=== PATIENT | female | born 1935 | race Hispanic/Latino ===

== ENCOUNTER → 2018-06-18 | Outpatient (CLI) | payer OTHER ==
[~2018-06-18] MED LIST: LEVO75 PO; LISI10TA7 PO; OMEG1CAP6 PO; SIMV20TA6 PO
== END | disposition home or self-care (01) ==
LOC: OIH 13:10
PROVIDERS: ATTEND Internal Medicine
DX: I10 Essential (primary) hypertension (principal); M47.815 Spondylosis without myelopathy or radiculopathy, thoracolumbar region
CPT/HCPCS: 71046

== ENCOUNTER → 2018-12-16 | Outpatient (CLI) | payer OTHER ==
[~2018-12-16] MED LIST changes: +ALPR1TAB7 PO; +CEPH500B PO; +CHOL200013 PO; +HYDR-4457 PO; +NAPR-1192 PO; +PANT40TA25 PO; +REFRESH OPTIVE OP
== END | disposition home or self-care (01) ==
LOC: OIH 08:57
PROVIDERS: ATTEND Internal Medicine
DX: Z01.818 Encounter for other preprocedural examination (principal); I10 Essential (primary) hypertension
CPT/HCPCS: 71046

== ENCOUNTER 2018-12-18 08:12 | Day surgery (SDC) | payer OTHER ==
[2018-12-17 14:46] VITALS: BP 176/83
--- NOTE | 2018-12-17 17:28 | NUR ---
ABNORMAL EKG ABNORMAL EKG RESULT REPORTED TO DR. OSBORNE. NO FURTHER ORDERS GIVEN, MAY PROCEED WITH PLANNED PROCEDURE.
[2018-12-18] VITALS (16 sets, daily range): BP systolic 98–138; BP diastolic 47–73
[~2018-12-18] VITALS: Ht 152.4 cm; Wt 87.6 kg
[~2018-12-18 08:12] MED LIST changes: +CEFAZOLIN SODIUM 1 GM VIAL IVP SCH; -CEPH500B PO; -HYDR-4457 PO; -NAPR-1192 PO; -OMEG1CAP6 PO
[2018-12-18] MEDS ORDERED: LACTATED RINGERS 1000ML 1,000 ML IV ONE (10:48)
[2018-12-18] MEDS ORDERED: CLINDAMYCIN 900 MG/D5% WATER 50 ML IV ONE (12:38)
[2018-12-18] MEDS ORDERED: MIDAZOLAM HCL 1 MG/ML 2ML VIAL ONE (13:56)
[2018-12-18] MEDS ORDERED: LIDOCAINE PF 2% 5ML ABBOJECT ONE (13:56)
[2018-12-18] MEDS ORDERED: PROPOFOL 10 MG/ML 20ML VIAL IV ONE (13:56)
[2018-12-18] MEDS ORDERED: ROPIVACAINE 0.5% 5MG/ML 30ML IJ ONE ×2 (13:56→14:05)
[2018-12-18] MEDS ORDERED: FENTANYL CITRATE PF 50 MCG/1 ML 2ML VIAL ONE (13:57)
[2018-12-18] MEDS ORDERED: ROCURONIUM 10MG/1ML SYR 10 MG/ML ML ONE ×2 (13:57→15:21)
[2018-12-18] MEDS ORDERED: VASOPRESSIN 20 UNITS/ML 1ML VIAL ONE (14:03)
[2018-12-18] MEDS ORDERED: EPINEPHRINE 1 MG/ML 30ML VIAL IJ ONE (14:07)
[2018-12-18] MEDS ORDERED: EPHEDRINE SULFATE 50 MG/ML AMPULE ONE (15:04)
[2018-12-18] MEDS ORDERED: CEFAZOLIN SODIUM 1 GM VIAL ONE (15:49)
[2018-12-18] MEDS ORDERED: GLYCOPYRROLATE 1 MG/5 ML SYRINGE ONE (15:51)
[2018-12-18] MEDS ORDERED: NEOSTIGMINE 5MG/5ML SYR IV ONE (15:51)
[2018-12-18] MEDS ORDERED: DEXAMETHASONE SOD PHOSPHATE 4 MG/ML 1ML VIAL ONE (15:52)
[2018-12-18] MEDS ORDERED: ONDANSETRON HCL 4 MG/2 ML VIAL ONE (15:52)
[2018-12-18] MEDS ORDERED: CLINDAMYCIN PHOSPHATE 150 MG/ML 6ML VIAL ONE (16:06)
[2018-12-18] MEDS ORDERED: ESMOLOL HCL 10 MG/ML 10 ML VIAL ONE (17:40)
[2018-12-18] MEDS ORDERED: HYDR-4457 PO (17:58)
[2018-12-18] MEDS ORDERED: NAPR-1192 PO (17:58)
[2018-12-18] MEDS ORDERED: CEPH500B PO (17:58)
--- NOTE | 2018-12-18 19:10 | NUR ---
post op received pt from PACU, S/P RIGHT shoulder arthroscopy , dressing to right shoulder dry and intact with arm sling in place. ice packs applied to site. vs stable on arrival. pt awake but seemed very drowsy. able to follow simple commands , but needs to be spoken loudly for her to open eyes. daughter at bedside. she voiced her concern about her mother being very drowsy. informed her that those are side effects of anesthesia. will continue to monitor.
--- NOTE | 2018-12-18 19:42 | NUR ---
dc dc instructions given to pts daughter with rx x 3, instructed to f/u with Dr. Lopez on 12/21/18 at 3:15 pm, to keep right arm elevated above heart level in arm sling, to keep dressing to right shoulder dry and intact until seen by dr. lopez. instructed on new med regimen and possible side effect. photo copy of dr. lopez dc shoulder orders provided and reviewed with daughter.
--- NOTE | 2018-12-18 20:00 | NUR ---
assess pts daughter states her mom "is not ready fro discharge" states she believes is too soon for her to go home. Explained to daughter that patient meets criteria for discharge, pt denies any pain to shoulder, vs as follows 123/62, HR 68, RESP 18, 02 SAT 98% ON ROOM air, pt states " i feel like i cant berp", like i can't fully take a deep breath". instructed patient /daughter that patient received a nerve block for the right shoulder surgery. that numbs some upper right chest area also. Patient awake and alert, breathing normally. Patient vs stable since she arrived to floor . Anesthesia notified spoke to Hector Hopper CRNA he stated he will evaluate patient per patients request before she goes home. will continue to monitor.
--- NOTE | 2018-12-18 20:25 | NUR ---
assses vs continue to be stable. patient sitting up in chair, daughter at bedside.
--- NOTE | 2018-12-18 21:35 | NUR ---
DC PT DC HOME VIA WC AFTER ARIES LOPEZ CRNA CAME TO EVAULATE HER. PT STABLE . STATES FEELS BETTER. PT ACCOMPANIED BY DAUGHTER.
== END 2018-12-18 21:35 | disposition home or self-care (01) ==
LOC: DAH 08:12
PROVIDERS: ATTEND Orthopaedic Surgery
DX: M75.121 Complete rotator cuff tear or rupture of right shoulder, not specified as traumatic (principal); M71.321 Other bursal cyst, right elbow; M19.011 Primary osteoarthritis, right shoulder; M67.421 Ganglion, right elbow; M25.811 Other specified joint disorders, right shoulder; G89.29 Other chronic pain; R22.31 Localized swelling, mass and lump, right upper limb; I10 Essential (primary) hypertension; E78.5 Hyperlipidemia, unspecified; K21.9 Gastro-esophageal reflux disease without esophagitis; K29.70 Gastritis, unspecified, without bleeding; R20.0 Anesthesia of skin; F17.210 Nicotine dependence, cigarettes, uncomplicated; Z90.49 Acquired absence of other specified parts of digestive tract; Z98.890 Other specified postprocedural states; Z79.899 Other long term (current) drug therapy
CPT/HCPCS: 24076; 29824; 29826; 29827; 88305; 93005; A4565; A4600; A4649 ×5; A4930; A6204; C1713; G0168; J0171; J0690 ×2; J1100; J2001; J2250; J2405; J2704; J2710; J2795 ×2; J3010; J3490 ×5; J7120 ×2

== ENCOUNTER 2018-12-30 17:49 | Observation (INO) | payer OTHER ==
[~2018-12-30] VITALS: Ht 152.4 cm; Wt 86.8 kg
[~2018-12-30 17:49] MED LIST changes: -CEFAZOLIN SODIUM 1 GM VIAL IVP SCH; +CEPH500B PO; +HYDR-4457 PO; +NAPR-1192 PO
[2018-12-30 18:32] LABS: BASOPHILS % (AUTO) 0.7 % (0.0-5.0); EOSINOPHILS % (AUTO) 2.5 % (0.0-8.0); HEMATOCRIT 36.5 % (36-48); LYMPHOCYTES % (AUTO) 23.3 % (21.0-51.0); MEAN CORPUSCULAR HGB CONC 33.8 g/dL (32.0-36.0); MEAN CORPUSCULAR VOLUME 94.6 fL (79-99); MONOCYTES % (AUTO) 4.6 % (3.0-13.0); NEUTROPHILS % (AUTO) 68.9 % (40.0-77.0); NUCLEATED RED BLOOD CELLS 0.1 % (0.0-0.19); PLATELET COUNT (AUTO) 297 K/uL (130-400); RED BLOOD CELL COUNT(AUTO) 3.86 MIL/uL (4.00-5.50); RED CELL DISTRIBUTION WIDTH 14.9 % (11.0-15.5); WHITE BLOOD COUNT (AUTO) 10.4 K/uL (4.8-10.8)
[2018-12-30 18:44] LABS: INR 1.44 (0.85-1.15); PARTIAL THROMBOPLASTIN TIME 34.2 SEC (26.3-35.5)
[2018-12-30 18:47] LABS: ALBUMIN 3.7 g/dL (3.5-5.0); BILIRUBIN,TOTAL 0.2 mg/dL (0.2-1.0); CREATININE 0.8 mg/dL (0.5-1.5); TOTAL PROTEIN, SERUM 7.3 g/dL (6.0-8.3)
[2018-12-30 18:54] LABS: B-TYPE NATRIURETIC PEPTIDE 57 pg/mL (0-100)
[2018-12-30] MEDS ORDERED: KETOROLAC TROMETHAMINE 15MG/ML ONE (19:26)
[2018-12-30] MEDS ORDERED: CYCLOBENZAPRINE HCL 10 MG TABLET ONE (19:26)
[2018-12-30] MEDS ORDERED: SODIUM CHLORIDE 0.9% 1000ML 1,000 ML IV ONE (19:27)
[2018-12-30 20:28] LABS: APPEARANCE,URINE Clear (CLEAR); BILIRUBIN,URINE Negative (NEGATIVE); COLOR,URINE Yellow (YELLOW); GLUCOSE, URINE (UA) Negative (NEGATIVE); KETONES,URINE Negative (NEGATIVE); LEUKOCYTE ESTERASE ,URINE Small (NEGATIVE); NITRATE,URINE Negative (NEGATIVE); OCCULT BLOOD,URINE Negative (NEGATIVE); PROTEIN,URINE Negative (NEGATIVE); UROBILINOGEN,URINE 0.2 mg/dL (0.2-1.0)
[2018-12-30] MEDS ORDERED: IOHEXOL-350 75 ML VIAL IV ONE (20:34)
[2018-12-30 20:36] LABS: RBC,URINE None Seen /HPF (0-1)
[2018-12-30 20:37] LABS: BACTERIA,URINE None Seen /HPF (None Seen); RENAL EPITHELIAL CELLS,URINE Rare /HPF (None Seen); TRANSITIONAL EPI CELLS,URINE Few /HPF (None Seen); WBC,URINE 0-1 /HPF (0-1)
[2018-12-30] MEDS ORDERED: LEVOFLOXACIN 500 MG/D5W 100 ML 100 ML ONE (22:47)
[2018-12-30] MEDS ORDERED: CEFTRIAXONE SODIUM 1 GM ONE (22:47)
[2018-12-30 23:40] VITALS: BP 178/78
--- NOTE | 2018-12-30 23:40 | NUR ---
ADMISSION NOTE Received and admitted pt. to floor from ER per stretcher alert and very responsive. Placed in bed according to her comfort. Complaints of pain to her left shoulder. Product Safety Associate asked the pocket secretary assembler right away to contact the doctor. Assessment done. VS checked and recorded. ( see full assessment at flow chart - CPOE). Oriented to room and use of call light. Policies and procedures explained. Verbalized understanding. IV site to LAC # 20 gauge - patent and intact. Kept monitored and observed for any unusualities. Needs attended and cared for. Plan of care initiated. No apparent distress noted.
[2018-12-31] MEDS ORDERED: CEFTRIAXONE SODIUM 1 GM IVP SCH
[2018-12-31] MEDS ORDERED: MORPHINE SULFATE 4 MG/1ML SYG IV PRN
--- NOTE | 2018-12-31 | NUR ---
CALLED DR. PERKINS FOR PAIN As soon as pt. arrived at floor ,pt reported that she did not took the naproxen at ER for it will not resolved her pain. She even said that the reason she came in ER was because of pain. She requested the publicity writer to really call her doctor and ask for a strong pain medication. DR. Perkins was called by the publicity writer and ordered to give Morphine 4mg IV q6hrs for severe pain - carried out.
[2018-12-31] MEDS ORDERED: ALPR0.255 PO (00:23)
[2018-12-31] MEDS ORDERED: MORPHINE SULFATE 4 MG/1ML SYG ONE (00:54)
[2018-12-31 04:20] VITALS: BP 158/67
--- NOTE | 2018-12-31 06:05 | NUR ---
ARLETTE NOLASCO ROUNDED Seen and examined pt with orders and carried out. 1. MRI to left shoulder w/o contrast 2. Give ativan 0.5mg IV x 1 only before MRI for pt. is claustrophobic 3. Solumedrol 80 mg IV x 1 only for left shoulder pain 4. place on heart healthy diet 5. its ok if the pt. refused MRI 6 D/C pt. after MRI and follow up visit to clinic in 2 days.
[2018-12-31 06:36] LABS: BASOPHILS % (AUTO) 0.5 % (0.0-5.0); EOSINOPHILS % (AUTO) 3.2 % (0.0-8.0); HEMATOCRIT 33.1 % (36-48); LYMPHOCYTES % (AUTO) 41.6 % (21.0-51.0); MEAN CORPUSCULAR HEMOGLOBIN 31.8 pg (27.0-33.0); MEAN CORPUSCULAR HGB CONC 33.7 g/dL (32.0-36.0); MEAN CORPUSCULAR VOLUME 94.4 fL (79-99); MONOCYTES % (AUTO) 7.3 % (3.0-13.0); NEUTROPHILS % (AUTO) 47.4 % (40.0-77.0); PLATELET COUNT (AUTO) 270 K/uL (130-400); RED BLOOD CELL COUNT(AUTO) 3.51 MIL/uL (4.00-5.50); RED CELL DISTRIBUTION WIDTH 14.7 % (11.0-15.5); WHITE BLOOD COUNT (AUTO) 9.9 K/uL (4.8-10.8)
[2018-12-31 06:42] LABS: CREATININE 0.8 mg/dL (0.5-1.5); POTASSIUM 3.6 mmol/L (3.5-5.1)
--- NOTE | 2018-12-31 07:50 | NUR ---
Gregorio NOLASCO rounded with orders and carried out. 1. to apply heating pads to left shoulder 2. transfer service to Dr. Thompson
[2018-12-31 08:00] VITALS: BP 141/79
[2018-12-31] MEDS ORDERED: MORPHINE SULFATE 2 MG/ML 1ML SYG IVP PRN (08:00)
[2018-12-31] MEDS ORDERED: METHYLPREDNISOLONE SOD SUCC 125MG/2ML VIAL IVP SCH (09:00)
[2018-12-31] MEDS ORDERED: LORAZEPAM 2 MG/ML 1 ML VIAL IVP ONE (09:00)
[2018-12-31] MEDS: ENOXAPARIN SODIUM 30 MG/0.3 ML SQ SCH ×2 (09:48→12:29)
--- NOTE | 2018-12-31 11:36 | NUR ---
REFUSED LOVENOX AND ALSO REFUSED MRI SO ATIVAN DID NOT NEED TO BE GIVEN. PENDING DISCHARGE. UN-COOPERATIVE TO CARE BEING RENDERED.
[2018-12-31 12:00] VITALS: BP 140/72
--- NOTE | 2018-12-31 13:30 | NUR ---
DISCHARGED NOW USING TEACH BACK, WILL FOLLOW UP WITH DR. CHONG IN 3 DAYS. TO CONTINUE SAME HOME MEDICATIONS.
== END 2018-12-31 13:40 | disposition home or self-care (01) ==
LOC: EDH 17:49 → EDHIP 21:51 → 3AH 23:42
PROVIDERS: ADMIT Internal Medicine; ATTEND Internal Medicine
DX: M19.012 Primary osteoarthritis, left shoulder (principal); J44.0 Chronic obstructive pulmonary disease with (acute) lower respiratory infection; J18.9 Pneumonia, unspecified organism; F41.9 Anxiety disorder, unspecified; Z90.89 Acquired absence of other organs; Z90.49 Acquired absence of other specified parts of digestive tract; Z79.899 Other long term (current) drug therapy; Z79.01 Long term (current) use of anticoagulants
CPT/HCPCS: 36415 ×2; 71045; 71275; 73030; 80048; 80053; 81001; 82150; 82550; 83605; 83690; 83880; 84484; 85025 ×2; 85610; 85730; 87040 ×2; 93005; 96372; 96374; 99284; G0378 ×16; J0696; J1650; J1885; J1956; J2270; J2930; J7030; Q9967

== ENCOUNTER → 2019-01-15 | Outpatient (CLI) | payer OTHER ==
[~2019-01-15] MED LIST changes: +ALPR0.255 PO; -ALPR1TAB7 PO; -CEPH500B PO; -HYDR-4457 PO
== END | disposition home or self-care (01) ==
LOC: RAH 13:56
PROVIDERS: ATTEND Internal Medicine
DX: R22.31 Localized swelling, mass and lump, right upper limb (principal)
CPT/HCPCS: 76882

== ENCOUNTER 2019-09-07 00:07 | Emergency (ER) | payer OTHER ==
[~2019-09-07 00:07] MED LIST changes: -PANT40TA25 PO; +PANT40TA54 PO; +SIMV-43 PO; -SIMV20TA6 PO
[2019-09-07] MEDS ORDERED: METOCLOPRAMIDE 10 MG/2 ML VIAL ONE (00:26)
[2019-09-07] MEDS ORDERED: ONDANSETRON HCL 4 MG/2 ML VIAL ONE (00:26)
[2019-09-07] MEDS ORDERED: FAMOTIDINE/PF 20 MG/2 ML VIAL IV ONE (00:27)
[2019-09-07] MEDS ORDERED: SODIUM CHLORIDE 0.9% 1000ML 1,000 ML IV ONE ×2 (00:27→00:50)
[2019-09-07 00:51] LABS: PARTIAL THROMBOPLASTIN TIME 24.8 SEC (26.3-35.5); PROTHROMBIN TIME 10.8 SEC (9.6-11.6)
[2019-09-07 00:54] LABS: POTASSIUM 3.1 mmol/L (3.5-5.1)
[2019-09-07 00:55] LABS: BASOPHILS % (AUTO) 0.2 % (0.0-5.0); EOSINOPHILS % (AUTO) 0.4 % (0.0-8.0); HEMATOCRIT 42.4 % (36-48); LYMPHOCYTES % (AUTO) 22.9 % (21.0-51.0); MEAN CORPUSCULAR HEMOGLOBIN 31.6 pg (27.0-33.0); MEAN CORPUSCULAR HGB CONC 33.7 g/dL (32.0-36.0); MEAN CORPUSCULAR VOLUME 93.8 fL (79-99); MONOCYTES % (AUTO) 3.1 % (3.0-13.0); NEUTROPHILS % (AUTO) 73.1 % (40.0-77.0); PLATELET COUNT (AUTO) 311 K/uL (130-400); RED BLOOD CELL COUNT(AUTO) 4.52 MIL/uL (4.00-5.50); RED CELL DISTRIBUTION WIDTH 13.4 % (11.0-15.5); WHITE BLOOD COUNT (AUTO) 14.5 K/uL (4.8-10.8)
[2019-09-07 01:06] LABS: ALBUMIN 3.7 g/dL (3.5-5.0); BILIRUBIN,TOTAL 0.3 mg/dL (0.2-1.0); THYROID STIMULATING HORMONE 4.02 uIU/mL (0.36-3.74)
[2019-09-07] MEDS ORDERED: HYOSCYAMINE SULFATE 0.125 MG TAB.SUBL SL ONE (02:13)
[2019-09-07 02:49] LABS: APPEARANCE,URINE Clear (CLEAR); BILIRUBIN,URINE Negative (NEGATIVE); COLOR,URINE Yellow (YELLOW); GLUCOSE, URINE (UA) Negative (NEGATIVE); KETONES,URINE Negative (NEGATIVE); LEUKOCYTE ESTERASE ,URINE Trace (NEGATIVE); NITRATE,URINE Negative (NEGATIVE); OCCULT BLOOD,URINE Negative (NEGATIVE); PROTEIN,URINE Negative (NEGATIVE); UROBILINOGEN,URINE 0.2 mg/dL (0.2-1.0)
[2019-09-07] MEDS ORDERED: LEVOFLOXACIN 500 MG TABLET ONE (02:50)
[2019-09-07 02:59] LABS: BACTERIA,URINE None Seen /HPF (None Seen); RBC,URINE None Seen /HPF (0-1); SQUAMOUS EPITHELIAL CELL,UR Few /HPF (0-2); WBC,URINE 0-1 /HPF (0-1)
== END 2019-09-07 03:10 | disposition home or self-care (01) ==
LOC: EDH 00:07
DX: E86.9 Volume depletion, unspecified (principal); R11.10 Vomiting, unspecified; R19.7 Diarrhea, unspecified; E05.90 Thyrotoxicosis, unspecified without thyrotoxic crisis or storm; Z90.49 Acquired absence of other specified parts of digestive tract; I10 Essential (primary) hypertension; Z87.891 Personal history of nicotine dependence
CPT/HCPCS: 36415; 80053; 81001; 82550; 83605; 83630; 83690; 84443; 84484; 85025; 85610; 85730; 87046; 93005; 96361; 96374; 96375; 99284; J2405; J2765; J3490; J7030 ×2

== ENCOUNTER → 2019-09-16 | Outpatient (CLI) | payer OTHER ==
[~2019-09-16] MED LIST changes: +NEBI5TAB8 PO; +NITA500T4 PO
== END | disposition home or self-care (01) ==
LOC: RAH 08:25
PROVIDERS: ATTEND Internal Medicine
DX: K76.89 Other specified diseases of liver (principal); Z90.49 Acquired absence of other specified parts of digestive tract
CPT/HCPCS: 76700

== ENCOUNTER → 2019-11-10 | Outpatient (CLI) | payer OTHER | END | disposition home or self-care (01) | LOC: RAH 10:36 | PROVIDERS: ATTEND Internal Medicine Gastroenterology | DX: K30 Functional dyspepsia (principal); R11.0 Nausea | CPT/HCPCS: 78264; A9541 ==

== ENCOUNTER → 2020-01-31 | Outpatient (CLI) | payer OTHER ==
[~2020-01-31] MED LIST changes: -NEBI5TAB8 PO; -NITA500T4 PO
== END | disposition home or self-care (01) ==
LOC: RAH 09:06
PROVIDERS: ATTEND Internal Medicine
DX: I77.4 Celiac artery compression syndrome (principal); I72.8 Aneurysm of other specified arteries; K55.1 Chronic vascular disorders of intestine
CPT/HCPCS: 76700; 93975

== ENCOUNTER 2020-03-19 12:12 | Observation (INO) | payer OTHER ==
[~2020-03-19] VITALS: Ht 152.4 cm; Wt 84.1 kg
[2020-03-19 13:30] LABS: BASOPHILS % (AUTO) 0.5 % (0.0-5.0); EOSINOPHILS % (AUTO) 0.7 % (0.0-8.0); HEMATOCRIT 39.9 % (36-48); LYMPHOCYTES % (AUTO) 30.7 % (21.0-51.0); MEAN CORPUSCULAR HEMOGLOBIN 31.6 pg (27.0-33.0); MEAN CORPUSCULAR HGB CONC 32.8 g/dL (32.0-36.0); MEAN CORPUSCULAR VOLUME 96.1 fL (79-99); MONOCYTES % (AUTO) 6.9 % (3.0-13.0); PLATELET COUNT (AUTO) 314 K/uL (130-400); RED BLOOD CELL COUNT(AUTO) 4.15 MIL/uL (4.00-5.50); RED CELL DISTRIBUTION WIDTH 13.9 % (11.0-15.5); WHITE BLOOD COUNT (AUTO) 9.1 K/uL (4.8-10.8)
[2020-03-19 13:49] LABS: CREATININE 0.9 mg/dL (0.5-1.5); POTASSIUM 4.1 mmol/L (3.5-5.1)
[2020-03-19 13:50] LABS: INR 0.99 (0.85-1.15); PARTIAL THROMBOPLASTIN TIME 26.1 SEC (26.3-35.5); PROTHROMBIN TIME 10.7 SEC (9.6-11.6)
[2020-03-19 13:53] LABS: ALBUMIN 3.7 g/dL (3.5-5.0); BILIRUBIN,TOTAL 0.2 mg/dL (0.2-1.0); TOTAL PROTEIN, SERUM 7.8 g/dL (6.0-8.3)
[2020-03-19 14:05] LABS: B-TYPE NATRIURETIC PEPTIDE 59 pg/mL (0-100)
[2020-03-19] MEDS ORDERED: 1/2 NORMAL SALINE 1,000 ML IV SCH (17:30)
[2020-03-19 19:45] VITALS: BP 134/57
--- NOTE | 2020-03-19 19:45 | NUR ---
ADMISSION PT ARRIVED TO THE FLOOR VIA BED. A/A/OX3. NO C/O PAIN OR DISCOMFORTS. BROACH SETTER APPLIED, SINUS RHYTHM IN THE 70S. HOME MEDS HAVE BEEN ENTERED FOR MD TO REVIEW. REPORTS NO USE OF ASSISTIVE DEVICES FOR AMBULATING. NON-SKID HOSPITAL SOCKS PLACED ON BILAT FEET. PT REPORTS THAT SHE CAME TO THE ED D/T FEELING HER HEART "SKIPPING" A BEAT WELL A "LOW PULSE" REPORTED AT 48. PT ALSO REPORTS THAT SHE WAS BEGAN TAKING BYSTOLIC 5MG PO DAILY ON FRIDAY AFTER HER APPOINTMENT AT DR. CHONG'S OFFICE. SHE ALSO REPORTS HE GAVE HER SAMPLES OF [place]IN[place] AND TOOK 2 OF THE 4 PILLS. INSTRUCTED HOW TO USE THE CALL LIGHT AND THE BED FUNCTIONS. HIGHLY ENCOURAGED THE PT TO CALL FOR ASSISTANCE BEFORE GETTING OUT OF BED- PT VERBALIZED UNDERSTANDING. BED ALARM ON. CALL LIGHT LEFT WITHIN REACH ON BED. BED LOCKED IN LOWEST POSITION. DOOR LEFT OPEN FOR CONTINUED CLOSE MONITORING .
[2020-03-19 21:02] LABS: CREATINE KINASE, TOTAL 38 U/L (21-232); MYOGLOBIN 77 ng/mL (10-92); TROPONIN I < 0.04 ng/mL (0.00-0.06)
[2020-03-19] MEDS ORDERED: NITA500T4 PO (22:09)
[2020-03-19] MEDS ORDERED: NEBI5TAB8 PO (22:09)
[2020-03-20 00:03] VITALS: BP 115/58
[2020-03-20 04:02] VITALS: BP 114/59
[2020-03-20 04:43] LABS: HEMATOCRIT 37.8 % (36-48); MEAN CORPUSCULAR HEMOGLOBIN 31.6 pg (27.0-33.0); MEAN CORPUSCULAR HGB CONC 33.3 g/dL (32.0-36.0); MEAN CORPUSCULAR VOLUME 94.7 fL (79-99); NUCLEATED RED BLOOD CELLS 0.2 % (0.0-0.19); RED BLOOD CELL COUNT(AUTO) 3.99 MIL/uL (4.00-5.50); RED CELL DISTRIBUTION WIDTH 13.8 % (11.0-15.5); WHITE BLOOD COUNT (AUTO) 10.1 K/uL (4.8-10.8)
[2020-03-20 05:05] LABS: ALANINE AMINOTRANSFERASE 30 U/L (12-78); ALBUMIN 3.3 g/dL (3.5-5.0); ASPARTATE AMINOTRANSFERASE 18 U/L (10-37); BILIRUBIN,TOTAL 0.3 mg/dL (0.2-1.0); CARBON DIOXIDE 28 mmol/L (21-32); CHLORIDE 105 mmol/L (101-111); CREATINE KINASE, TOTAL 40 U/L (21-232); CREATININE 0.8 mg/dL (0.5-1.5); GLOMERULAR FILTR. RATE CALC 73 mL/min (>60); GLUCOSE,RANDOM 91 mg/dL (70-105); MYOGLOBIN 61 ng/mL (10-92); POTASSIUM 3.6 mmol/L (3.5-5.1); SODIUM SERUM 141 mmol/L (136-145); TROPONIN I < 0.04 ng/mL (0.00-0.06); UREA NITROGEN, BLOOD 12 mg/dL (7-18)
[2020-03-20] MEDS ORDERED: LEVOTHYROXINE 75 MCG TABLET PO SCH (06:30)
[2020-03-20 07:59] VITALS: BP 140/69
[2020-03-20] MEDS ORDERED: CHOLECALCIFEROL 2000 UNIT PO SCH (09:00)
[2020-03-20] MEDS ORDERED: PANTOPRAZOLE SODIUM 40 MG TABLET.DR PO SCH (09:00)
[2020-03-20 10:45] VITALS: BP 121/67
--- NOTE | 2020-03-20 11:17 | NUR ---
CONTACT DR CHONG FOR ORDERS TO DISCHARGE, ORDERS RECEIVED AND PATIENT TO HAVE A 48 HOLTER MONITOR PLACED AT DR LACEY OFFICE ON 03/21/20. PATIENT WILL BE GIVEN INSTRUCTION ON MONITOR THEN. PATIENT IS TO FOLLOW-UP WITH DR CHONG ON THE
--- NOTE | 2020-03-20 11:21 | NUR ---
CHARGE NURSE GIVE DISCHARGE ORDER TO PATIENT IV AND TELEMETRY UNIT REMOVE AND PATIENT WAS TAKING DOWNSTAIRS TO MEET FAMILY FOR RIDE TO HOME.
[2020-03-20] MEDS ORDERED: ALPRAZOLAM 0.25 MG TABLET PO SCH (21:00)
[2020-03-20] MEDS ORDERED: SIMVASTATIN 20 MG TABLET PO SCH (21:00)
== END 2020-03-20 11:10 | disposition home or self-care (01) ==
LOC: EDH 12:12 → EDHIP 16:33 → 3CH 19:56
PROVIDERS: ADMIT Internal Medicine; ATTEND Internal Medicine
DX: R55 Syncope and collapse (principal); R00.1 Bradycardia, unspecified; E78.5 Hyperlipidemia, unspecified; I10 Essential (primary) hypertension; J44.9 Chronic obstructive pulmonary disease, unspecified
CPT/HCPCS: 36415 ×2; 71045; 80053 ×2; 82550 ×3; 83874 ×2; 83880; 84484 ×3; 85025; 85027; 85610; 85730; 93005; 99285; G0378 ×9

== ENCOUNTER → 2020-03-21 | Outpatient (CLI) | payer OTHER ==
[~2020-03-21] MED LIST changes: -LISI10TA7 PO
[2020-03-21 15:46] LABS: CREATININE 0.9 mg/dL (0.5-1.5)
== END | disposition home or self-care (01) ==
LOC: LAB 14:57
PROVIDERS: ATTEND Internal Medicine Cardiovascular Disease
DX: K55.1 Chronic vascular disorders of intestine (principal); R10.9 Unspecified abdominal pain
CPT/HCPCS: 36415; 82565; 84520

== ENCOUNTER → 2020-04-06 | Outpatient (CLI) | payer OTHER ==
[~2020-04-06] MED LIST changes: +IOHEXOL 350 MG/ML 100ML INFUS..BTL IV ONE
== END | disposition home or self-care (01) ==
LOC: RAH 09:16
PROVIDERS: ATTEND Internal Medicine Cardiovascular Disease
DX: K57.30 Diverticulosis of large intestine without perforation or abscess without bleeding (principal); K76.89 Other specified diseases of liver; K55.1 Chronic vascular disorders of intestine; Z90.49 Acquired absence of other specified parts of digestive tract; Z90.710 Acquired absence of both cervix and uterus
CPT/HCPCS: 74175; Q9967; 74174

== ENCOUNTER → 2020-04-21 | Outpatient (CLI) | payer OTHER ==
[~2020-04-21] MED LIST changes: -IOHEXOL 350 MG/ML 100ML INFUS..BTL IV ONE
== END | disposition home or self-care (01) ==
LOC: RAH 12:05
PROVIDERS: ATTEND Internal Medicine
DX: M41.9 Scoliosis, unspecified (principal); M89.8X1 Other specified disorders of bone, shoulder
CPT/HCPCS: 72082; 73000

== ENCOUNTER → 2020-05-16 | Outpatient (CLI) | payer OTHER | END | disposition home or self-care (01) | LOC: SHCH 13:03 | PROVIDERS: ATTEND Internal Medicine Cardiovascular Disease | DX: R55 Syncope and collapse (principal); E78.5 Hyperlipidemia, unspecified; R06.09 Other forms of dyspnea; R07.9 Chest pain, unspecified | CPT/HCPCS: 93306; 93356 ==

== ENCOUNTER → 2020-05-19 | Outpatient (CLI) | payer OTHER ==
[~2020-05-19] MED LIST changes: +REGADENOSON 0.4 MG/5 ML PF SYG IVP SCH
== END | disposition home or self-care (01) ==
LOC: SHCH 07:57
PROVIDERS: ATTEND Internal Medicine Cardiovascular Disease
DX: R06.09 Other forms of dyspnea (principal); R07.9 Chest pain, unspecified
CPT/HCPCS: 78452; 93017; 96374; A9500 ×2; J2785

== ENCOUNTER → 2020-11-23 | Outpatient (CLI) | payer OTHER ==
[~2020-11-23] MED LIST changes: -REGADENOSON 0.4 MG/5 ML PF SYG IVP SCH
== END | disposition home or self-care (01) ==
LOC: RAH 10:30
PROVIDERS: ATTEND Internal Medicine
DX: G45.9 Transient cerebral ischemic attack, unspecified (principal)
CPT/HCPCS: 70551

== ENCOUNTER → 2020-12-12 | Outpatient (CLI) | payer OTHER | END | disposition home or self-care (01) | LOC: RAH 13:24 | PROVIDERS: ATTEND Internal Medicine | DX: I77.1 Stricture of artery (principal); I77.4 Celiac artery compression syndrome; K55.1 Chronic vascular disorders of intestine; R19.7 Diarrhea, unspecified; K76.89 Other specified diseases of liver; Z90.49 Acquired absence of other specified parts of digestive tract | CPT/HCPCS: 74181 ==

== ENCOUNTER 2021-05-05 20:23 | Emergency (ER) | payer OTHER ==
[~2021-05-05] VITALS: Ht 152.4 cm; Wt 85.3 kg
[2021-05-05 23:03] LABS: BASOPHILS % (AUTO) 0.4 % (0.0-5.0); EOSINOPHILS % (AUTO) 0.7 % (0.0-8.0); HEMATOCRIT 38.7 % (36-48); LYMPHOCYTES % (AUTO) 28.5 % (21.0-51.0); MEAN CORPUSCULAR HEMOGLOBIN 30.9 pg (27.0-33.0); MEAN CORPUSCULAR HGB CONC 32.3 g/dL (32.0-36.0); MEAN CORPUSCULAR VOLUME 95.6 fL (79-99); MONOCYTES % (AUTO) 5.1 % (3.0-13.0); PLATELET COUNT (AUTO) 275 K/uL (130-400); RED BLOOD CELL COUNT(AUTO) 4.05 MIL/uL (4.00-5.50); RED CELL DISTRIBUTION WIDTH 13.2 % (11.0-15.5); WHITE BLOOD COUNT (AUTO) 10.1 K/uL (4.8-10.8)
[2021-05-05 23:20] LABS: ALBUMIN 3.8 g/dL (3.5-5.0); CREATININE 0.9 mg/dL (0.5-1.5); MAGNESIUM 2.4 mg/dL (1.80-2.40); POTASSIUM 4.6 mmol/L (3.5-5.1)
[2021-05-05 23:35] LABS: BILIRUBIN,TOTAL 0.2 mg/dL (0.2-1.0); TOTAL PROTEIN, SERUM 7.7 g/dL (6.0-8.3)
[2021-05-05 23:42] VITALS: BP 101/64
[2021-05-06] MEDS ORDERED: ONDANSETRON ODT 4MG TAB SL ONE
== END 2021-05-06 00:05 | disposition home or self-care (01) ==
LOC: EDH 20:23
DX: I10 Essential (primary) hypertension (principal); R00.2 Palpitations; R11.2 Nausea with vomiting, unspecified; R14.0 Abdominal distension (gaseous); E03.9 Hypothyroidism, unspecified; F41.9 Anxiety disorder, unspecified; K21.9 Gastro-esophageal reflux disease without esophagitis; Z88.1 Allergy status to other antibiotic agents; Z79.1 Long term (current) use of non-steroidal anti-inflammatories (NSAID); Z79.899 Other long term (current) drug therapy
CPT/HCPCS: 36415; 71045; 80053; 82550; 83690; 83735; 84484; 85025; 93005

== ENCOUNTER → 2021-05-14 | Outpatient (CLI) | payer OTHER | END | disposition home or self-care (01) | LOC: OIH 14:34 | PROVIDERS: ATTEND Internal Medicine | DX: S09.90XA Unspecified injury of head, initial encounter (principal); M47.22 Other spondylosis with radiculopathy, cervical region; X58.XXXA Exposure to other specified factors, initial encounter; Y93.89 Activity, other specified; Y92.89 Other specified places as the place of occurrence of the external cause; Y99.8 Other external cause status | CPT/HCPCS: 70260; 72040 ==

== ENCOUNTER 2021-05-26 16:30 | Emergency (ER) | payer OTHER ==
[~2021-05-26] VITALS: Ht 149.9 cm; Wt 84.4 kg
[2021-05-26] MEDS ORDERED: CYCLOBENZAPRINE HCL 10 MG TABLET PO ONE (17:30)
[2021-05-26] MEDS ORDERED: KETOROLAC 30MG VIAL (30MG/ML) IM ONE (17:30)
[2021-05-26] MEDS ORDERED: HYDROCODONE/ACETAMINOPHEN 10/325 MG TAB PO ONE (17:30)
[2021-05-26] MEDS ORDERED: MELO7.5T12 PO (18:36)
[2021-05-26] MEDS ORDERED: CYCL10TA16 PO (18:36)
[2021-05-26] MEDS ORDERED: ACET-2247 PO (18:36)
[2021-05-26 18:42] VITALS: BP 103/55
== END 2021-05-26 18:56 | disposition home or self-care (01) ==
LOC: EDH 16:30
DX: M54.42 Lumbago with sciatica, left side (principal); M54.41 Lumbago with sciatica, right side; E03.9 Hypothyroidism, unspecified; F41.9 Anxiety disorder, unspecified; I10 Essential (primary) hypertension; K21.9 Gastro-esophageal reflux disease without esophagitis; Z88.1 Allergy status to other antibiotic agents; Z79.1 Long term (current) use of non-steroidal anti-inflammatories (NSAID); Z79.899 Other long term (current) drug therapy; Z90.49 Acquired absence of other specified parts of digestive tract
CPT/HCPCS: 72131; 96372; 99284; J1885

== ENCOUNTER 2021-06-18 07:40 | Emergency (ER) | payer OTHER ==
[~2021-06-18] VITALS: Ht 149.9 cm; Wt 85.3 kg
[~2021-06-18 07:40] MED LIST changes: +ACET-2247 PO; +CYCL10TA16 PO; +MELO7.5T12 PO
[2021-06-18 08:38] VITALS: BP 142/66
== END 2021-06-18 12:56 | disposition left against medical advice (07) ==
LOC: EDH 07:40
DX: M54.9 Dorsalgia, unspecified (principal); Z53.21 Procedure and treatment not carried out due to patient leaving prior to being seen by health care provider

== ENCOUNTER 2023-10-26 01:50 | Emergency (ER) | payer OTHER ==
[~2023-10-26] VITALS: Ht 154.9 cm; Wt 85.7 kg
[2023-10-26 02:10] LABS: APPEARANCE,URINE CLOUDY (CLEAR); BILIRUBIN,URINE NEGATIVE (NEGATIVE); GLUCOSE, URINE (UA) NEGATIVE (NEGATIVE); KETONES,URINE NEGATIVE (NEGATIVE); LEUKOCYTE ESTERASE ,URINE 500 Leu/uL (NEGATIVE); NITRATE,URINE NEGATIVE (NEGATIVE); OCCULT BLOOD,URINE LARGE (NEGATIVE); PH,URINE 6.5 (5.0-8.0); PROTEIN,URINE 200 mg/dL (NEGATIVE); UROBILINOGEN,URINE 0.2 mg/dL (0.2-1.0)
[2023-10-26 02:12] LABS: ADD UA MICROSCOPIC YES
[2023-10-26 02:14] VITALS: BP 133/71; PULSE 82; RESP 18; O2SAT 96
[2023-10-26 02:14] LABS: BACTERIA,URINE RARE /HPF (None Seen); RBC,URINE TNTC /HPF (0-1); SQUAMOUS EPITHELIAL CELL,UR FEW /HPF (0-2); WBC CLUMP MOD /HPF (0-1); WBC,URINE TNTC /HPF (0-1)
[2023-10-26 02:16] LABS: COLOR,URINE RED (YELLOW)
[2023-10-26 02:19] LABS: BASOPHILS # (AUTO) 0.05 K/uL (0.00-0.20); BASOPHILS % (AUTO) 0.3 % (0.0-5.0); EOSINOPHILS # (AUTO) 0.11 K/uL (0.00-0.70); EOSINOPHILS % (AUTO) 0.6 % (0.0-8.0); HEMATOCRIT 37.1 % (36-48); IMMATURE GRANULOCYTE ABSOLUTE 0.06 K/uL (0-1); LYMPHOCYTES # (AUTO) 3.2 K/uL (1.0-4.8); LYMPHOCYTES % (AUTO) 18.5 % (21.0-51.0); MEAN CORPUSCULAR HEMOGLOBIN 30.8 pg (27.0-33.0); MEAN CORPUSCULAR HGB CONC 33.4 g/dL (32.0-36.0); MEAN CORPUSCULAR VOLUME 92.3 fL (79-99); MONOCYTES % (AUTO) 5.6 % (3.0-13.0); NEUTROPHILS # (AUTO) 12.9 K/uL (1.8-7.7); NEUTROPHILS % (AUTO) 74.7 % (40.0-77.0); PLATELET COUNT (AUTO) 291 K/uL (130-400); RED BLOOD CELL COUNT(AUTO) 4.02 MIL/uL (4.00-5.50); RED CELL DISTRIBUTION WIDTH 14.6 % (11.0-15.5); WHITE BLOOD COUNT (AUTO) 17.3 K/uL (4.8-10.8)
[2023-10-26 02:31] LABS: CREATININE 1.1 mg/dL (0.5-1.0); POTASSIUM 3.9 mmol/L (3.5-5.1)
[2023-10-26] MEDS ORDERED: PHEN-776 PO (02:58)
[2023-10-26] MEDS ORDERED: AMOX1TAB16 PO (02:58)
[2023-10-26] MEDS: PHENAZOPYRIDINE HCL 200 MG TABLET PO ONE (03:00)
[2023-10-26] MEDS: CEFTRIAXONE 2GM VIAL IVPB ONE (03:01)
[2023-10-26] MEDS: KETOROLAC 30MG VIAL (30MG/ML) IVP ONE (03:01)
== END 2023-10-26 03:21 | disposition home or self-care (01) ==
LOC: EDH 01:50
DX: N30.01 Acute cystitis with hematuria (principal); F41.9 Anxiety disorder, unspecified; K21.9 Gastro-esophageal reflux disease without esophagitis; E78.00 Pure hypercholesterolemia, unspecified; E03.9 Hypothyroidism, unspecified; I10 Essential (primary) hypertension; Z79.1 Long term (current) use of non-steroidal anti-inflammatories (NSAID); Z79.899 Other long term (current) drug therapy; Z88.1 Allergy status to other antibiotic agents; Z90.49 Acquired absence of other specified parts of digestive tract; Z90.710 Acquired absence of both cervix and uterus
CPT/HCPCS: 99284; 96365; 96375; 80048; 85025; 87077; 87088; 87186; 81001; 36415; J0696; J1885

== ENCOUNTER → 2024-04-11 | Emergency (ER) | payer OTHER ==
[~2024-04-11] VITALS: Ht 157.5 cm; Wt 87.1 kg
[~2024-04-11] MED LIST changes: +AMOX1TAB16 PO; +PHEN-776 PO
[2024-04-11 17:22] VITALS: BP 147/86; PULSE 74; RESP 18; TEMP 98.4; O2SAT 95
== END ==
LOC: EDH 16:48
DX: T47.2X1A Poisoning by stimulant laxatives, accidental (unintentional), initial encounter (principal); E03.9 Hypothyroidism, unspecified; E78.00 Pure hypercholesterolemia, unspecified; F41.9 Anxiety disorder, unspecified; I10 Essential (primary) hypertension; K21.9 Gastro-esophageal reflux disease without esophagitis; Z79.1 Long term (current) use of non-steroidal anti-inflammatories (NSAID); Z79.899 Other long term (current) drug therapy; Z88.1 Allergy status to other antibiotic agents; Z90.49 Acquired absence of other specified parts of digestive tract; Z90.710 Acquired absence of both cervix and uterus; Z98.890 Other specified postprocedural states; Y92.89 Other specified places as the place of occurrence of the external cause
CPT/HCPCS: 99282